=== PATIENT | female | born 2000 | race Two or more races ===

== ENCOUNTER 2021-03-19 15:22 | Emergency (ER) | payer MEDICAID, OTHER ==
[~2021-03-19] VITALS: Ht 154.9 cm; Wt 90.7 kg
[2021-03-19 17:40] VITALS: BP 134/89
== END 2021-03-19 17:52 | disposition home or self-care (01) ==
LOC: ER 15:22 → EDBD 15:22 → ER 17:52
DX: S60.212A Contusion of left wrist, initial encounter (principal); S20.212A Contusion of left front wall of thorax, initial encounter; V49.9XXA Car occupant (driver) (passenger) injured in unspecified traffic accident, initial encounter; Y93.89 Activity, other specified; Y92.410 Unspecified street and highway as the place of occurrence of the external cause; Y99.8 Other external cause status
CPT/HCPCS: 71046; 73100; 93005

== ENCOUNTER 2024-07-14 09:30 | Emergency (ER) | payer MEDICAID ==
[~2024-07-14] VITALS: Ht 157.5 cm; Wt 86.8 kg
[2024-07-14 10:24] VITALS: BP 137/93; PULSE 107; RESP 18; TEMP 98.9; O2SAT 96
--- NOTE | 2024-07-14 10:47 | ED.PDOC ---
General HPI Comments A 24 YEAR OLD FEMALE PRESENTS TO THE ED WITH COMPLAINT OF SUPRAPUBIC ABDOMINAL PAIN DURING . PATIENT REPORTS THAT SHE HAS BEEN EXPERIENCING SUPRAPUBIC CRAMPING WITH ASSOCIATED PRESSURE, BILATERAL FLANK PAIN, AND FREQUENT URINATION FOR THE PAST 2 DAYS. PATIENT RELAYS THAT SHE IS CURRENTLY 7 WEEKS AND HAS FOLLOWED UP WITH DR. SANCHEZ REGARDING HER CONCERN, BEING ADVISED TO COME TO THE ED FOR FURTHER EVALAUTION. PATIENT IS . PATIENT DENIES FEVER, CHILLS, SHORTNESS OF BREATH, CHEST PAIN, DYSURIA, HEMATURIA, VAGINAL BLEEDING, NAUSEA, VOMITING, OR OTHER COMPLAINTS. NO OTHER SYMPTOMS OR MODIFYING FACTORS AT THIS TIME. Chief Complaint: Time Seen by MD: 10:43 Primary Care Provider: NONE Reviewed notes: Nurses Notes, Medications, Allergies Allergies: Coded Allergies: NO KNOWN ALLERGIES (Unverified , 03/19/21) Information Source: Patient Mode of Arrival: Ambulatory Severity: Mild, Moderate Inability to void: None Timing: Days Duration: Since onset Prehospital treatment: None Onset: Spontaneous Symptoms: Frequency, Urgency Location: Suprapubic, (R) Flank, (L)Flank associated signs and symptoms: Flank Pain, Frequency, Urgency, Other (PELVIC CRAMPS ) Past Medical History PAST MEDICAL HISTORY: Denies Surgical History: Denies all surgeries ENVIRONMENTAL OFFICER History: No Pertinent ENVIRONMENTAL OFFICER History 1 Para 0 Family History Family History: No family hx of Cancer, No family hx of DM, No family hx of Heart roberto Social History Smoker: Non-Smoker Alcohol: Denies ETOH Use Drugs: Denies Drug Use Lives In: Home Constitutional: denies: chills, diaphoresis, fatigue, fever, malaise, sweats, w eakness, others EENTM: denies: blurred vision, double vision, ear bleeding, ear discharge, ear drainage, ear pain, ear ringing, eye pain, eye redness, hearing loss, mouth pain, mouth swelling, nasal discharge, nose bleeding, nose congestion, nose pain, photophobia, tearing, throat pain, throat swelling, voice changes, others Respiratory: denies: cough, hemoptysis, orthopnea, SOB at rest, shortness of breath, SOB with excertion, stridor, wheezing, others Cardiovascular: denies: chest pain, dizzy spells, diaphoresis, Dyspnea on exertion, edema, irregular heart beat, left arm pain, lightheadedness, palpitations, PND, syncope, others Gastrointestinal: reports: abdominal pain; denies: abdomen distended, blood streaked bowels, constipated, diarrhea, dysphagia, difficulty swallowing, hematemesis, melena, nausea, poor appetite, poor fluid intake, rectal bleeding, rectal pain, vomiting, others Genitourinary: reports: frequency, pain (SURAPUBIC ), , urgency; denies: abnormal vagina bleeding, burning, dyspareunia, dysuria, flank pain, hematuria, incontinence, vagina discharge, others Neurological: denies: dizziness, fainting, headache, left sided numbness, left sided weakness, numbness, paresthesia, pre-existing deficit, right sided numbness, right sided weakness, seizure, speech problems, tingling, tremors, weakness, others Musculoskeletal: denies: back pain, gout, joint pain, joint swelling, muscle pain, muscle stiffness, neck pain, others Integumetry: denies: bruises, change in color, change in hair/nails, dryness, laceration, lesions, lumps, rash, wounds, others Allergic/Immunocompromised: denies: Difficulty Healing, Frequent Infections, Hives, Itching, others Hematologic/Lymphatic: denies: anemia, blood clots, easy bleeding, easy bruising, swollen glands, others Endocrine: denies: excessive hunger, excessive sweating, excessive thirst, excessive urination, flushing, intolerance to cold, intolerance to heat, unexplained weight gain, unexplained weight loss, others Psychiatric: denies: anxiety, bipolar disorder, depression, hopeless, panic disorder, schizophrenia, sleepless, suicidal, others All Other Systems: Reviewed and Negative Physical Exam General Appearance: No Apparent Distress, Normal HEENT: Normal ENT Inspection, PERRL/EOMI, Pharynx Normal Neck: Full Range of Motion, Non-Tender, Normal, Normal Inspection Respiratory: Chest Non-Tender, Lungs Clear, No Accessory Muscle Use, No Respiratory Distress, Normal Breath Sounds Cardiovascular: No Edema, No JVD, No Murmur, No Gallop, Normal Peripheral Pulses, Regular Rate/Rhythm Breast Exam: Deferred Gastrointestinal: No Organomegaly, Non Tender, No Pulsatile Mass, Normal Bowel Sounds, Soft, Suprapubic (PRESSURE. ) Genitalia: Deferred Pelvic: Normal External Exam, Tender Uterus (TENDERNESS SURAPUBIC, NO GUARDING AND REBOUND TENDERNESS. ) Rectal: Deferred Extremities: No calf tenderness, Normal capillary refill, Normal inspection, Normal range of motion, Non-tender, No pedal edema Musculoskeletal : Apperance: Normal Neurologic: Alert, freelance art director II-XII nml as Tested, No Motor Deficits, Normal Affect, Normal Mood, No Sensory Deficits Cerebellar Function: Normal Reflexes: Normal Skin: Dry, Normal Color, Warm Peripheral Pulses: 2+ carotid (R), 2+ carotid (L) Lymphatic: No Adenopathy Was a procedure done? Was a procedure done?: No Differential Diagnosis Kidney stone (Female): Ectopic Urinary Problem (Female): Intrauterine , UTI, Vaginitis X-Ray, Labs, Meds, VS Vital Signs Date Time Temp Pulse Resp B/P (MAP) Pulse Ox O2 Delivery O2 Flow Rate FiO2 07/14/24 10:24 98.9 107 18 137/93 (108) 96 98.9 07/14/24 10:24 107 18 96 Room Air 07/14/24 10:02 98.8 77 16 143/65 (91) 98 Lab Test 07/14/24 10:50 07/14/24 09:59 Range/Units White Blood Count 12.3 H 4.4-10.8 10^3/uL Red Blood Count 4.64 4.0-5.20 10^6/uL Hemoglobin 13.3 12.2-16.2 g/dL Hematocrit 39.4 36.0-46.0 % Mean Corpuscular Volume 84.8 80.0-100.0 fL Mean Corpuscular Hemoglobin 28.7 28.0-32.0 pg Mean Corpuscular Hemoglobin Concent 33.9 32.0-36.0 g/dL Red Cell Distribution Width 13.8 11.8-14.3 % Platelet Count 405 140-450 10^3/uL Mean Platelet Volume 7.6 6.9-10.8 fL Neutrophils (%) (Auto) 71.3 37.0-80.0 % Lymphocytes (%) (Auto) 20.8 10.0-50.0 % Monocytes (%) (Auto) 5.4 0.0-12.0 % Eosinophils (%) (Auto) 1.5 0.0-7.0 % Basophils (%) (Auto) 1.0 0.0-2.0 % Neutrophils # (Auto) 8.8 H 1.6-8.6 10 ^3/uL Lymphocytes # (Auto) 2.6 0.4-5.4 10 ^3/uL Monocytes # (Auto) 0.7 0-1.3 10 ^3/uL Eosinophils # (Auto) 0.2 0-0.8 10 ^3/uL Basophils # (Auto) 0.1 0-0.2 10 ^3/uL Nucleated Red Blood Cells 0.0 % Beta HCG, Quantitative 86076.6 H 1.5-4.2 mIU/mL Urine Color Yellow Yellow Urine Clarity Ex.turbid Clear Urine pH 5.5 5.0-9.0 Urine Specific [place] 1.033 1.001-1.035 Urine Protein 1+ H Negative Urine Ketones Negative Negative Urine Blood 1+ H Negative /uL Urine Nitrite Negative Negative Urine Bilirubin Negative Negative Urine Urobilinogen Normal Negative mg/dL Urine Leukocyte Esterase Trace Negative /uL Urine RBC None seen 0 - 4 /hpf Urine WBC None seen 0 - 5 /hpf Urine Squamous Epithelial Cells Mod <5 /hpf Urine Amorphous Crystals Few None Seen /hpf Urine Bacteria Mod H None Seen /hpf Urine Mucus Many None Seen Urine Glucose Normal Normal mg/dL PATIENT: ALETHA CAMPACCT: [id number]: [id number] : 2000 LOC: ER ROOM / BED: / AGE / SEX: 24 / F ADM STATUS: REG ER SERVICE 1110 ORDERING PHYSICIAN: DOMINIC HAN PROCEDURE(s): OB4US - OB ULTRASOUND COMP LESS 14WKS REASON: PELVIC PAIN ORDER NUMBER(s): [id number], ACCESSION NUMBER(s): [id number] OB ULTRASOUND <14 WEEKS: HISTORY: PELVIC PAIN TECHNIQUE: Multiple real-time grayscale sonographic images of the pelvis with duplex Doppler color flow, spectral and M-mode analysis. TRANSDUCERS: Transabdominal and endovaginal FINDINGS: The uterus measures 9.8 x 6.8 x 5.9 cm. The cervix veins trace free fluid Right ovary measures 6.6 x 4.5 x 5.5 cm with normal Doppler color flow. Simple appearing right ovarian cyst measuring 4.3 x 3.7 x 4.6 cm. Left ovary measures 3.9 x 1.9 x 1.9 cm with normal Doppler color flow IUP single live fetus at 7 weeks 0 days average ultrasound age based on mean crown-rump length of 0.7 cm and gestational sac size of 2.5 cm heart rate detected at 139 beats per minute. Yolk sac is present. Amniotic fluid subjectively within normal limits Birdie-gestational space: Unremarkable Trace free fluid in the posterior cul-de-sac. IMPRESSION: 1. IUP single live fetus 7 weeks 0 days AUA corresponding to an JEREMÍAS of 03/02/2025. 2. Trace free fluid in the cervix. 3. Trace free fluid in the posterior cul-de-sac. 4. Simple appearing right ovarian cyst measuring 4.6 cm. HS:Y ATED BY: MILAGRO COCHRAN DO DICTATED DATE/TIME: 07/14/24 1150 SIGNED BY: MILAGRO COCHRAN DO SIGNED DATE/TIME: 07/14/24 1150 CC: Time of 1ST Reevaluation: 12:00 Reevaluation 1ST: Improved Patient Education/Counseling: Diagnosis, Treatment, Need For Follow Up Family Education/Counseling: Diagnosis, Treatment, Need For Follow Up, No Family Present Medical Screening: No EMC Exist At This Time Departure 1 Departure Time of Disposition: 12:10 Impression: Primary Impression: Normal first in first trimester Additional Impression: Cyst of right ovary Disposition: 01 HOME / SELF CARE / HOMELESS Condition: Stable Additional Instructions: FOLLOW-UP WITH BREAKFAST BAR ATTENDANT IN 2 DAYS. TAKE MEDICATIONS PRESCRIBED. RETURN TO ED FOR ANY NEW OR WORSENING SYMPTOMS. Discharged With: Self Critical Care Note Critical Care Time?: No Stability Stability form required: No Heart Score Heart Score: Heart Score Response (Comments) Value History N/A 0 EKG N/A 0 Age N/A 0 Risk Factors N/A 0 Troponin N/A 0 Total 0 I personally scribed for DOMINIC HAN ([email or web address]) on 07/14/24 at 10:47. Electronically submitted by Nick Guevara ([email or web address]). DOMINIC HAN Jul 14, 2024 10:47
[2024-07-14 11:17] LABS: Basophils # (auto) 0.1 10 ^3/uL (0-0.2); Eosinophils # (auto) 0.2 10 ^3/uL (0-0.8); Eosinophils % (auto) 1.5 % (0.0-7.0); Hematocrit 39.4 % (36.0-46.0); Hemoglobin 13.3 g/dL (12.2-16.2); Lymphocytes # (auto) 2.6 10 ^3/uL (0.4-5.4); Lymphocytes % (auto) 20.8 % (10.0-50.0); Mean Corpuscular Hemoglobin 28.7 pg (28.0-32.0); Mean Corpuscular Hgb Conc. 33.9 g/dL (32.0-36.0); Mean Corpuscular Volume 84.8 fL (80.0-100.0); Monocytes # (auto) 0.7 10 ^3/uL (0-1.3); Monocytes % (auto) 5.4 % (0.0-12.0); Neutrophils # (auto) 8.8 10 ^3/uL (1.6-8.6); Neutrophils % (auto) 71.3 % (37.0-80.0); Platelet Count (auto) 405 10^3/uL (140-450); Red Blood Cells 4.64 10^6/uL (4.0-5.20); Red Cell Distribution Width 13.8 % (11.8-14.3); White Blood Cell 12.3 10^3/uL (4.4-10.8)
[2024-07-14 11:29] LABS: Urine WBC None Seen /hpf (0 - 5)
--- NOTE | 2024-07-14 11:53 | DVH ---
OB ULTRASOUND <14 WEEKS: HISTORY: PELVIC PAIN TECHNIQUE: Multiple real-time grayscale sonographic images of the pelvis with duplex Doppler color f low, spectral and M-mode analysis. TRANSDUCERS: Transabdominal and endovaginal FINDINGS: The uterus measures 9.8 x 6.8 x 5.9 cm. The cervix veins trace free fluid Right ovary measures 6.6 x 4.5 x 5.5 cm with normal Doppler color flow. Simple appearing right ovaria n cyst measuring 4.3 x 3.7 x 4.6 cm. Left ovary measures 3.9 x 1.9 x 1.9 cm with normal Doppler color flow IUP single live fetus at 7 weeks 0 days average ultrasound age based on mean crown-rump length of 0.7 cm and gestational sac size of 2.5 cm heart rate detected at 139 beats per minute. Yolk sac is present. Amniotic fluid subjectively within normal limits Birdie-gestational space: Unremarkable Trace free fluid in the posterior cul-de-sac. IMPRESSION: 1. IUP single live fetus 7 weeks 0 days AUA corresponding to an JEREMÍAS of 03/02/2025. 2. Trace free fluid in the cervix. 3. Trace free fluid in the posterior cul-de-sac. 4. Simple appearing right ovarian cyst measuring 4.6 cm. HS:Y
[2024-07-14 12:26] LABS: Urine Amorphous Crystal FEW /hpf (None Seen); Urine Bacteria MOD /hpf (None Seen); Urine Blood 1+ /uL (Negative); Urine Clarity Ex.Turbid (Clear); Urine Mucus MANY (None Seen); Urine Protein, UAD 1+ (Negative); Urine Specific Gravity 1.033 (1.001-1.035); Urine Urobilinogen Normal (Negative); Urine pH 5.5 (5.0-9.0)
[2024-07-14 12:27] LABS: Urine Color Yellow (Yellow)
== END 2024-07-14 12:09 | disposition home or self-care (01) ==
LOC: ER 09:30
DX: O34.81 Maternal care for other abnormalities of pelvic organs, first trimester (principal); R10.2 Pelvic and perineal pain; N83.201 Unspecified ovarian cyst, right side; Z3A.01 Less than 8 weeks gestation of pregnancy
CPT/HCPCS: 36415; 76801; 76817; 81001; 84702; 85025

== ENCOUNTER 2024-12-31 21:18 | Observation (INO) | payer MEDICAID ==
[2024-12-31] MEDS ORDERED: LACTATED RINGER'S 1,000 ML IV ONE (22:00)
--- NOTE | 2024-12-31 22:58 | DVH ---
INDICATION: FALL AND CONTRACTIONS TECHNIQUE: Multiple real-time grayscale transabdominal and transvaginal sonographic images along with limited color and duplex Doppler of the uterus were obtained. COMPARISON: None FINDINGS: The placenta is fundal without evidence of previa or abruption. The cervix is closed, measuring 2.9 c m. heart rate is 155 beats per minute and current ROSANA is 14.6 cm. IMPRESSION: 1. Unremarkable limited evaluation without evidence of placenta previa or abruption. Cervix is long and closed.
--- NOTE | 2025-01-01 07:53 | DVHDS2 ---
Discharge Summary Date of Admission December 31, 2024 at 21:18 Date of Discharge: December 31, 2024 Admitting Diagnosis Thirty-one week intrauterine had a fall to her bottom no abdominal trauma patient is here for reassurance Brief Hx & Hospital Course: Patient had a fall to her bottom no abdominal trauma here for reassurance Condition at Discharge: Good Final Diagnosis/Problems List Reassuring heart tones Discharge Disposition: Home Discharge Instruct/Medications Diet: Regular Activity: No Restrictions, As Tolerated Discharge Statement: "Patient was advised to return to the ER or call 911 if any headaches, di zziness, shortness of breath, chest pain, abdominal pain, bleeding, fevers, or worsening of medical condition. Patient was counseled about treatment plan, medications, possible side effects, patientverbalized understanding. All questions were answered to the best of my ability. This discharge took greater then 30 minutes in planning, reviewing documentation, counseling the patient, and discussing with other team members." ASSESSMENT ASSESSMENT Assessment Visit Coding OBGYN Date of Service: January 01, 2025 Billing Provider: MELY KERR DO INFORMATICA DEVELOPER Common Visit Codes: 70560-UMI/OBS SAME DATE (LOW), 61699-CLC/OBS SAME DATE (MOD), 35503-HDQ/OBS SAME DATE (HIGH) INFORMATICA DEVELOPER Procedure Codes: 60663-35- NON-STRESS TEST MELY KERR DO January 01, 2025 07:53
[2025-01-01] MEDS ORDERED: CEPH500C PO (15:37)
== END 2024-12-31 23:41 | disposition home or self-care (01) ==
LOC: LDRP 21:18
PROVIDERS: ADMIT Obstetrics & Gynecology; ATTEND Obstetrics & Gynecology
DX: O62.9 Abnormality of forces of labor, unspecified (principal); Z98.890 Other specified postprocedural states; Z79.899 Other long term (current) drug therapy; Z3A.31 31 weeks gestation of pregnancy; W18.39XA Other fall on same level, initial encounter; Y93.89 Activity, other specified; Y92.89 Other specified places as the place of occurrence of the external cause; Y99.8 Other external cause status
CPT/HCPCS: 59025; 76815; 76817; 81002; 94760; 96360; 96361; G0378

== ENCOUNTER 2025-01-01 12:51 | Emergency (ER) | payer MEDICAID ==
[~2025-01-01] VITALS: Ht 157.5 cm; Wt 85.0 kg
--- NOTE | 2025-01-01 14:04 | ED.PDOC ---
Foreign Body HPI Comments 24-year-old presents for a possible splinter to the left hand. Onset occurred yesterday. Has not tried removing them at home. Neurovascularly intact. No other complaint or concern Chief Complaint: Foreign Body Time Seen by MD: 13:53 Primary Care Provider: UNKNOWN History of Present Illness: Nurses Notes, Medications, Allergies Allergies: Coded Allergies: NO KNOWN ALLERGIES (Unverified , 03/19/21) Home Meds Active Scripts Cephalexin Monohydrate (Cephalexin) 500 Mg Cap, 1 CAP PO QID for 5 Days, #20 CAP 0 Refills Prov:MENA REDMAN Samm WELL LOGGING CAPTAIN MUD ANALYSIS 01/01/25 Information Source: Patient Mode of Arrival: Ambulatory Past Medical History PAST MEDICAL HISTORY: Denies Surgical History: Denies all surgeries TELEMEDICINE PHYSICIAN History: No Pertinent TELEMEDICINE PHYSICIAN History Family History Family History: No family hx of Cancer, No family hx of DM, No family hx of Heart roberto Social History Smoker: Non-Smoker Alcohol: Denies ETOH Use Drugs: Denies Drug Use Lives In: Home All Other Systems: Reviewed and Negative (Per HPI) Physical Exam General Appearance: No Apparent Distress, Normal HEENT: Normal ENT Inspection, Pharynx Normal, TMs Normal Neck: Full Range of Motion, Non-Tender, Normal, Normal Inspection Respiratory: Chest Non-Tender, Lungs Clear, No Accessory Muscle Use, No Respiratory Distress, Normal Breath Sounds Cardiovascular: No Edema, No JVD, No Murmur, No Gallop, Normal Peripheral Pulses, Regular Rate/Rhythm Breast Exam: Deferred Gastrointestinal: No Organomegaly, Non Tender, No Pulsatile Mass, Normal Bowel Sounds, Soft Genitalia: Deferred Pelvic: Deferred Rectal: Deferred Extremities: No calf tenderness, Normal capillary refill, Normal inspection, Normal range of motion, Non-tender, No pedal edema Musculoskeletal : Location: Right Extremity Location: Hand (visible splinters. TTP) Apperance: Normal Neurologic: Alert, humanities division chair II-XII nml as Tested, No Motor Deficits, Normal Affect, Normal Mood, No Sensory Deficits Cerebellar Function: Normal Reflexes: Normal Skin: Dry, Normal Color, Warm Lymphatic: No Adenopathy Was a procedure done? Was a procedure done?: Yes Sedation Sedation?: No Other Procedure Procedure splinter removal Prep yes Success yes Informed consent obtained: Yes Risks, benefits, and alternati: Yes FB Differential Dx Differential Diagnosis: Foreign Body X-Ray, Labs, Meds, VS Vital Signs Date Time Temp Pulse Resp B/P (MAP) Pulse Ox O2 Delivery O2 Flow Rate FiO2 01/01/25 15:45 98.9 89 20 120/78 (92) 96 98.9 01/01/25 15:45 89 20 96 Room Air 01/01/25 13:00 99.4 96 18 117/75 (89) 96 99.4 X-Ray, Labs, Meds, VS Comment Patient is stable for discharge at this time. External notes reviewed. Test results and diagnostic imaging interpreted. All diagnostic findings, discharge care, education and instructions provided Follow-up with PCP in 2 to 3 days Patient verbalized understanding and agreed to treatment plan Vital signs stable, afebrile, no acute distress noted Patient ambulatory with strong steady gait Advised to return precautions for any new or worsening symptoms, return to ER immediately for re-evaluation Patient is aware that the purpose of this visit was for an acute medical emergency requiring emergent stabilization. Chronic conditions, including malignancies have not been ruled out. Patient is instructed to follow up with PCP as directed and discharge instructions for continued care and workup. If unable to arrange follow-up, patient is to return to the emergency department for reassessment. Patient (parent or legal guardian if applicable) was given verbal and written discharge instructions and acknowledges understanding. Time of 1ST Reevaluation: 14:04 Reevaluation 1ST: Improved Patient Education/Counseling: Diagnosis, Treatment Family Education/Counseling: Diagnosis, Treatment Departure 1 Departure Time of Disposition: 15:37 Impression: Primary Impression: Splinter of hand Qualified Codes: S60.552A - Superficial foreign body of left hand, initial encounter Disposition: HOME / SELF CARE / HOMELESS Condition: Stable e-Prescriptions Cephalexin Monohydrate (Cephalexin) 500 Mg Cap 1 CAP PO QID for 5 Days, #20 CAP 0 Refills Prov: EMNA REDMAN WELL LOGGING CAPTAIN MUD ANALYSIS 01/01/25 Discharged With: Self Critical Care Note Critical Care Time?: No Stability Stability form required: No Heart Score Heart Score: Heart Score Response (Comments) Value History N/A 0 EKG N/A 0 Age N/A 0 Risk Factors N/A 0 Troponin N/A 0 Total 0 MENA REDMAN WELL LOGGING CAPTAIN MUD ANALYSIS January 01, 2025 14:04
[2025-01-01] MEDS ORDERED: CEPH500C PO (15:37)
[2025-01-01 15:45] VITALS: BP 120/78; PULSE 89; RESP 20; TEMP 98.9; O2SAT 96
== END 2025-01-01 16:03 | disposition home or self-care (01) ==
LOC: ER 12:51
DX: S60.552A Superficial foreign body of left hand, initial encounter (principal); Z79.899 Other long term (current) drug therapy; W45.8XXA Other foreign body or object entering through skin, initial encounter; Y93.89 Activity, other specified; Y92.89 Other specified places as the place of occurrence of the external cause; Y99.8 Other external cause status

== ENCOUNTER 2025-01-08 07:33 | Observation (INO) | payer MEDICAID ==
[~2025-01-08 07:33] MED LIST: CEPH500C PO
[2025-01-17] MEDS ORDERED: PREN-129 OR (10:40)
--- NOTE | 2025-01-17 11:01 | DVH ---
BIOPHYSICAL PROFILE HISTORY: short cervix TECHNIQUE: Multiple transabdominal real-time grayscale sonographic images through the gravid uterus o f the fetus with duplex doppler color flow and M-mode spectral analysis FINDINGS: BIOPHYSICAL PROFILE: breathing score: 2 movement score: 2 tone score: 2 Quantitative ROSANA score: 2 (ROSANA: 13.4 cm.) Total score: 8/8 The cervix closed and measures 3.2 cm. Single live fetus in cephalic presentation. heart rate 134 beats per minute. Fundal placenta without previa or abruption Biophysical profile score 8/8 corresponding to an JEREMÍAS of 03/02/25 IMPRESSION: Biophysical profile score: 8/8 The cervix closed and measures 3.2 cm.
--- NOTE | 2025-01-17 23:04 | DVHDS2 ---
Physician Discharge Progress N Final Diagnosis: testing for short cervix Operations or Procedures: Operations or Procedures 24yo IUP@33.5wks, +FM, denies UCs/LOF/VB VSS NST reactive FKC/PTL precautions reviewed Dr. Harmon consulted, agrees with POC. Other Interventions Other Interventions [address] [address] Ph: [phone] DIAGNOSTIC IMAGING Diagnostic Imaging Report : [id number] Signed PATIENT: ALETHA CAMPACCT: [id number] UNIT: [id number] : 2000 LOC: [facility] ROOM / BED: TRIAGE1 / A AGE / SEX: 24 / F ADM STATUS: ADM IN SERVICE 7 ORDERING PHYSICIAN: DEANDRA CHILDS CNM PROCEDURE(s): BPP - BIOPHYSICAL PROFILE REASON: short cervix ORDER NUMBER(s): [id number], ACCESSION NUMBER(s): [id number] BIOPHYSICAL PROFILE HISTORY: short cervix TECHNIQUE: Multiple transabdominal real-time grayscale sonographic images through the gravid uterus of the fetus with duplex doppler color flow and M-mode spectral analysis FINDINGS: BIOPHYSICAL PROFILE: breathing score: 2 movement score: 2 tone score: 2 Quantitative ROSANA score: 2 (ROSANA: 13.4 cm.) Total score: 8/8 The cervix closed and measures 3.2 cm. Single live fetus in cephalic presentation. heart rate 134 beats per minute. Fundal placenta without previa or abruption Biophysical profile score 8/8 corresponding to an JEREMÍAS of 03/02/25 IMPRESSION: Biophysical profile score: 8/8 The cervix closed and measures 3.2 cm. ATED BY: EDGARDO CHILEL MD DICTATED DATE/TIME: 01/17/251057 SIGNED BY: EDGARDO CHILEL MD SIGNED DATE/TIME: 01/17/251057 CC: Condition on Discharge: Stable Disposition: Home Discharge Instructions: Diet: Regular Activity: See Comment Activity comment: pelvic rest Medications: see med list Follow Up Care: Specialist: f/u in 1 wk Discharge Statement: "Patient was advised to return to the ER or call 911 if any headaches, dizziness, shortness of breath, chest pain, abdominal pain, bleeding, fevers, or worsening of medical condition. Patient was counseled about treatment plan, medications, possible side effects, patientverbalized understanding. All questions were answered to the best of my ability. This discharge took greater then 30 minutes in planning, reviewing documentation, counseling the patient, and discussing with other team members." Visit Coding OBGYN Date of Service: January 17, 2025 Billing Provider: DEANDRA CHILDS CNM PLAY WRITER Common Visit Codes: 45429-MIGKCAJ OBS CARE (HIGH) PLAY WRITER Procedure Codes: 48331-09- NON-STRESS TEST DEANDRA CHILDS CNM January 17, 2025 23:04
== END 2025-01-17 10:51 | disposition home or self-care (01) ==
LOC: LDRP 01-17 09:28 → UNDOADMOB 01-17 09:28 → LDRP 01-17 09:39
PROVIDERS: ADMIT Obstetrics & Gynecology; ATTEND Obstetrics & Gynecology
DX: O26.873 Cervical shortening, third trimester (principal); Z3A.33 33 weeks gestation of pregnancy; Z79.899 Other long term (current) drug therapy; Z98.890 Other specified postprocedural states
CPT/HCPCS: 59025; 76819; 81002; 94760; G0378

== ENCOUNTER 2025-01-24 06:38 | Inpatient (IN) | payer MEDICAID ==
[~2025-01-24] VITALS: Ht 157.5 cm; Wt 90.7 kg
[~2025-01-24 06:38] MED LIST changes: +PREN-129 OR
[2025-02-19] MEDS ORDERED: NALBUPHINE HCL 10 MG/1ml INJECTION IV PRN (11:15)
[2025-02-19] MEDS: LACT. RINGERS/OXYTOCIN 20UNITS 1,000 ML IV SCH (11:15)
[2025-02-19] MEDS ORDERED: TERBUTALINE SULFATE 1 MG/ML 1ML VIAL SC PRN (11:15)
[2025-02-19] MEDS: ePHEDrine SULFATE 50 MG/ML AMP IV ONE (11:45)
[2025-02-19] MEDS: NALOXONE HCL 0.4 MG/ML VIAL IV ONE (11:45)
[2025-02-19 12:03] LABS: Basophils # (auto) 0.1 10 ^3/uL (0-0.2); Monocytes # (auto) 0.7 10 ^3/uL (0-1.3); Neutrophils # (auto) 7.6 10 ^3/uL (1.6-8.6); White Blood Cell 10.1 10^3/uL (4.4-10.8)
[2025-02-19 12:04] LABS: Basophils % (auto) 0.7 % (0.0-2.0); Eosinophils # (auto) 0 10 ^3/uL (0-0.8); Eosinophils % (auto) 0.4 % (0.0-7.0); Hematocrit 37.9 % (36.0-46.0); Hemoglobin 12.8 g/dL (12.2-16.2); Lymphocytes # (auto) 1.7 10 ^3/uL (0.4-5.4); Lymphocytes % (auto) 16.6 % (10.0-50.0); Mean Corpuscular Hemoglobin 26.3 pg (28.0-32.0); Mean Corpuscular Hgb Conc. 33.7 g/dL (32.0-36.0); Mean Corpuscular Volume 78.2 fL (80.0-100.0); Monocytes % (auto) 7.2 % (0.0-12.0); Neutrophils % (auto) 75.1 % (37.0-80.0); Platelet Count (auto) 356 10^3/uL (140-450); Red Blood Cells 4.85 10^6/uL (4.0-5.20); Red Cell Distribution Width 16.1 % (11.8-14.3)
[2025-02-19] MEDS: PHISODERM TOP SOLN 240ML BTL TOP PRN (12:08)
[2025-02-19] MEDS: DERMOPLAST 60ML BOTTLE TOP PRN (12:08)
[2025-02-19] MEDS: WITCH HAZEL-GLYCERIN PAD TOP PRN (12:08)
[2025-02-19 12:09] LABS: Alanine Aminotransferase 14 U/L (7-40); Albumin 3.6 g/dL (3.2-4.8); Alkaline Phosphatase 228 U/L (46-116); Anion Gap 12 (5-15); Aspartate Aminotransferase 14 U/L (<34); BUN/Creatinine Ratio 10.6 (10.0-20.0); Blood Urea Nitrogen 5 mg/dL (9-23); Calcium 9.3 mg/dL (8.7-10.4); Carbon Dioxide 18 mmol/L (20-31); Chloride 108 mmol/L (98-107); Glucose 72 mg/dL (74-106); INR 0.89 (0.9-1.15); Partial Thromboplastin Time 25.4 SEC (24.5-34.5); Potassium 4.1 mmol/L (3.5-5.1); Prothrombin Time 9.5 sec (9.3-11.8); Sodium 138 mmol/L (136-145); Total Protein 6.1 g/dL (5.7-8.2)
[2025-02-19] MEDS: LACTATED RINGER'S 1,000 ML IV SCH ×2 (12:09→20:30)
[2025-02-19 12:10] LABS: Bilirubin, Total 0.4 mg/dL (0.2-1.0)
--- NOTE | 2025-02-19 13:35 | DVHHP2 ---
SADA JULES STUDENTMDW 02/19/25 1334: OB CC & HPI Date Date of Admission: Feb 19, 2025 Patient Identification: : 1 Para: 0 EDC: Mar 02, 2025 EGA: 03/02/2025 Chief Complaints: Reason for admission: active labor Admission Nurse Assessment Rev: Yes History of Present Complaints 25yo IUP@ 38.3 wks presents in labor. Pt reports UCs Q3 min that started this morning at 0830. Wants an epidural. Denies LOF/VB/[place]/vision changes/RUQ pain. Endorses +FM. PNC: Routine PNC at [facility] OB with Dr Harmon, adequate visits, PNC uncomplicated. GTT wnl, dating based on LMP c/w 6wk sono, GBS negative. Past Medical History Cardiac: No pertinent Hx Pulmonary: No pertinent Hx Central Nervous System: No pertinent Hx GI: No pertinent Hx Hemotology/Oncology: No pertinent Hx Hepatobiliary: No pertinent Hx Psychiatric: No pertinent Hx Musculoskeletal: No pertinent Hx Rheumotologic: No pertinent Hx Infectious Disease: No peritnent Hx ENT: No pertinent Hx Renal/: No pertinent Hx Endocrine: No pertinent Hx Dermatology: No pertinent Hx Past Surgical History: No pertinent Hx OB History OB History Care: Good Care Ultrasounds: Normal mid trimester US Obstetrical Complications: None Medical Complications: None Allergies: Coded Allergies: NO KNOWN ALLERGIES (Unverified , 03/19/21) Home Meds Active Scripts Cephalexin Monohydrate (Cephalexin) 500 Mg Cap, 1 CAP PO QID for 5 Days, #20 CAP 0 Refills Prov:MENA REDMAN CERTIFIED MIDWIFE 01/01/25 Reported Medications Vit W/ Ferrous Fumara () Tab, 1 OR DAILY, TAB 01/17/25 Home Meds PNV Current Medications Current Medications Medications (Trade) Dose Ordered Sig/[place] Route PRN Reason Start Time Stop Time Status Last Admin Lactated Ringer's 1,000 ml @ 125 mls/hr Q8H IV 02/19/25 11:15 02/19/25 12:42 Nalbuphine HCl (Nubain) 10 mg Q4HP PRN IV MODERATE PAIN (4-6 PAIN SCALE) 02/19/25 11:15 Witch Argenis (Tucks) 1 pad PRN PRN TOP PERINEAL AREA DISCOMFORT 02/19/25 11:15 02/19/25 12:08 Sodium Lauryl Sulfate (Phisoderm) 240 ml PRN PRN TOP PERINEAL AREA DISCOMFORT 02/19/25 11:15 02/19/25 12:08 Benzocaine (Dermoplast) 1 applic PRN PRN TOP PERINEAL AREA DISCOMFORT 02/19/25 11:15 02/19/25 12:08 Lidocaine HCl (Xylocaine) 20 ml ONCE PRN IJ PERINEAL AREA DISCOMFORT 02/19/25 11:15 Oxytocin 1,000 ml @ 6 ml/hr Q24H IV 02/19/25 11:15 Terbutaline Sulfate (Brethine Inj) 0.25 mg ONCE PRN SC Uterine tachysystole 02/19/25 11:15 Lactated Ringer's 1,000 ml @ 125 mls/hr Q8H IV 02/19/25 12:30 UNV Family & Social History Family/Social History Past Family/Social History: Maternal grandfather- pancreatic cancer; Paternal grandfather- HTN Blood Type: O+ Rubella: immune RPR/VDRL: Negative GBS Status: Negative HBsAG: Negative Review of Systems Constitutional: No symptom reported Ears, Nose, & Throat: No symptom reported Eyes: No symptom reported Pulmonary/Respiratory: No symptom reported Cardiovascular: No symptom reported Gastrointestinal: No symptom reported Genitourinary: No symptom reported Musculoskeletal: No symptom reported Skin: No symptom reported Psychiatric: No symptom reported Endocrine: No symptom reported Hemotologic/Lymphatic: No symptom reported OB Admission Exam Physical Exam Vitals: VSS, see chart HEENT: TMs Normal, Fontanelles Normal, Nasal Mucosa Normal, Eyes non-injected, Oropharynx Normal, PERRLA, Moist Membranes, EOMI Heart: Rhythm Normal Lungs: Clear Abdomen: Non tender Extremities: Normal Reflexes: Normal Pelvic Exam: Done by RN Cervical Dilatation: 4cm Effacement: 75% Station: -2 Membranes: Intact Heart Rate: 150's (poor/sketchy tracing) Nursing Home Variability: Average (6-25) Contractions on Admission: < 5 Minutes Apart (Q 2-4 min) Date/Time Contractions Began: 08:30 this morning Intensity: Moderate OB Plan Plan Admitting Diagnosis: 25yo IUP@ 38.3wks Labor Category I EFM Intact Membranes GBS negative Plan: Expectant Management Other Plan: Admit to &D Informed consent obtained Expectant management for now due to frequent UCs Discussed potential of starting pitocin with pt. Pt agrees with POC. monitoring per order Routine labs ordered Pain mgmt PRN Frequent position changes in and out of bed encouraged Limit SVE unless necessary Intrauterine resuscitation PRN Anticipate CNM will consult with Visit Coding OBGYN Date of Service: Feb 19, 2025 Billing Provider: MELY KERR DO STICK WELDER Common Visit Codes: [id number] INP/OBS CARE (MOD) STICK WELDER Procedure Codes: 22932-50- NON-STRESS TEST MELY KERR DO 02/20/25 1112: Allergies: Coded Allergies: NO KNOWN ALLERGIES (Unverified , 03/19/21) Home Meds Active Scripts Cephalexin Monohydrate (Cephalexin) 500 Mg Cap, 1 CAP PO QID for 5 Days, #20 CAP 0 Refills Prov:MENA REDMAN CERTIFIED MIDWIFE 01/01/25 Reported Medications Vit W/ Ferrous Fumara () Tab, 1 OR DAILY, TAB 01/17/25 SADA JULES STUDENTMDW Feb 19, 2025 13:34 MELY KERR DO Feb 20, 2025 11:12
[2025-02-19] MEDS: fentaNYL CITRATE 100 MCG/2 ML VL IV ONE (14:54)
[2025-02-19] MEDS: ROPIVACAINE HCL 100 ML ONE (14:59)
[2025-02-19 16:37] LABS: Urine Bacteria FEW /hpf (None Seen); Urine Blood 1+ /uL (Negative); Urine Clarity Turbid (Clear); Urine Color Yellow (Yellow); Urine Mucus FEW (None Seen); Urine Protein, UAD 1+ (Negative); Urine Specific Gravity 1.021 (1.001-1.035); Urine Squamous Epithelial Cell FEW /hpf (<5); Urine Urobilinogen Normal (Negative); Urine WBC 5 /HPF (0-5)
[2025-02-19 16:51] LABS: Barbiturate Scree,Urine Neg (NEGATIVE)
[2025-02-19 16:53] LABS: Amphetamine Screen, Urine Neg (NEGATIVE); Benzodiazephine Screen, Urine Neg (NEGATIVE); Cannabinoid Screen, Urine Neg (NEGATIVE); Cocaine Screen, Urine Neg (NEGATIVE); Opiate Scree,Urine Neg (NEGATIVE); Phencyclidine Screen, Urine Neg (NEGATIVE)
--- NOTE | 2025-02-19 17:18 | EPIDURAL ---
Anesthesia Procedural Note - Epidural Informed consent obtained?: Yes Medication Administered: Fentanyl 100 mcg Sterile prept drape: Yes Spinal level of insertion: L4-L5 Test dose of lidocaine & Epine: Negative Infusion started: Yes Start time: 14:30 End time: 14:55 Procedure description Procedure description: Called for labor analgesia. Patient is here at term in labor, requesting epidural. History taken, patient examined and chart reviewed. Informed consent obtained for CSE. Sitting position, sterile prep and drape. Time out done. L4-5 space infiltrated with 1% lido. Epidural needle placed with JUDITH at 6cm. 25G spinal needle +clear CSE. 15mcg fentanyl given IT. Epidural catheter secured at 12cm. Aspiration and test dose (33cc 1.5% lido with epi) negative. 85mcg fentanyl given via epidural. Patient reports pain relief. 0.2% ropivacaine infusion started. Patient VSS throughout. Will follow as needed. MAURICIO MUÑIZ MD Feb 19, 2025 17:17
[2025-02-19] MEDS: LACT. RINGERS/OXYTOCIN 20UNITS 500 ML IV ONE ×2 (19:23→19:48)
[2025-02-19] MEDS: LIDOCAINE 2%HCL (LOCAL ANESTH.) INJ 20ML MDV IJ PRN (19:40)
--- NOTE | 2025-02-19 20:03 | LDN2 ---
SADA JULES STUDENTMDW 02/19/25 2003: Labor and Delivery Note Date 02/19/25 Age 25 1 Para now, 1 AB 0 EDC 03/02/25 EGA 38.3 wks Diagnosis Vaginal Delivery: VTX Vacuum Assisted: No Placenta: Spontaneous Sex: Female Weight pending Apgars 8/9 Nuchal Cord Transected: No Amniotic Fluid: Meconium Stained, Thin Anesthesia epidural Episiotomy: No Extension: No Repaired with 2.0 Chromic EBL 100 Labs Blood Bank 02/19/25 11:30: Blood Type O POSITIVE Conditions stable Card Scraper Adrian Comments/Significant Med Anne At 1911 this 25yo now delivered a viable Female by w/ APGARS 8/9. OA presentation. Infant placed skin to skin on pts chest. RT at bedside before delivery. Cord clamped and cut after 2 min. Cord gasses collected, venous 7.35 and arterial 7.24. Cord blood sent. Pitocin IV bolus started. Intact 3-vessel cord placenta delivered spontaneously, Errol. Placenta sent to pathology. Patient had epidural and local anesthesia. Cervix/vagina inspected (intact) and second degree midline vaginal laceration present which was repaired with 2-0 chromic suture. Fundus at U, firm, midline, and light lochia. QBL 100ml. VSS. Count correct x2. Patient to care and baby to couplet care, both stable. Rectal mucosa and sphincter intact. Rectal exam performed, WNL, not involved. Visit Coding OBGYN Date of Service: Feb 19, 2025 Billing Provider: MELY KERR DO MARKETING CONSULTANT Common Visit Codes: PROCEDURE ONLY MARKETING CONSULTANT Procedure Codes: 59410-FMF DEL INCLUDING MELY KERR DO 02/20/25 1113: SADA JULES STUDENTMDW Feb 19, 2025 20:03 MELY KERR DO Feb 20, 2025 11:13
[2025-02-19] MEDS ORDERED: ONDANSETRON HCL 4 MG/2 ML VIAL IV PRN (22:45)
[2025-02-19] MEDS: ACETAMINOPHEN 325 MG TAB PO PRN (23:45)
[2025-02-20 03:10] VITALS: BP 118/61; PULSE 82; RESP 16; TEMP 99; O2SAT 99
[2025-02-20] MEDS: IBUPROFEN 600 MG TAB PO PRN (04:11)
[2025-02-20 07:00] VITALS: BP 126/63; PULSE 85; RESP 17; TEMP 98.6; O2SAT 96
[2025-02-20 11:13] VITALS: BP 130/79; PULSE 78; RESP 16; TEMP 97.9; O2SAT 96
[2025-02-20 15:00] VITALS: BP 126/63; PULSE 96; RESP 16; TEMP 98.1; O2SAT 98
[2025-02-20 19:10] VITALS: BP 131/58; PULSE 86; RESP 16; TEMP 98.4; O2SAT 99
[2025-02-20] MEDS ORDERED: DOCUSATE SOD 100 MG CAP PO SCH (22:00)
--- NOTE | 2025-02-21 06:01 | DVHPN2 ---
Chief Complaints Patient reports: No new complaints (02/20/2025 0800), Feels better, Feels worse Nursing reports: No new complaints, No abdominal pain, No chest pain, No cough Objective Vitals Vital Signs Date Time Temp Pulse Resp B/P (MAP) Pulse Ox O2 Delivery O2 Flow Rate FiO2 02/20/25 19:10 98.4 86 16 131/58 (82) 99 98.4 02/20/25 19:10 Room Air General: Normal Head/Eyes: Normal Neck: Normal Abdominal: Normal Musculoskeletal: Normal Extremities: Normal Skin: Normal Neurological: Normal Studies Laboratory Tests 02/19/25 11:30 Test 02/19/25 11:30 Range/Units Serum Glucose 72 L 74-106 mg/dL Ass/Plan Assessment PPD #1 stable improved Plan advance care MELY KERR DO Feb 21, 2025 06:01
--- NOTE | 2025-02-21 06:03 | DVHDS2 ---
Discharge Summary Date of Admission Feb 19, 2025 at 11:00 Date of Discharge: Feb 20, 2025 Admitting Diagnosis labor Labs/Diagnostic Data: Laboratory Results Test 02/19/25 15:48 02/19/25 11:30 Urine Color Yellow (Yellow) Urine Clarity Turbid (Clear) Urine pH 6.0 (5.0-9.0) Urine Specific [place] 1.021 (1.001-1.035) Urine Protein 1+ (Negative) Urine Ketones 1+ (Negative) Urine Blood 1+ /uL (Negative) Urine Nitrite Negative (Negative) Urine Bilirubin Negative (Negative) Urine Urobilinogen Normal mg/dL (Negative) Urine Leukocyte Esterase Negative /uL (Negative) Urine RBC 53 /hpf (0 - 4) Urine Microscopic WBC 5 /HPF (0-5) Urine Squamous Epithelial Cells Few /hpf (<5) Urine Bacteria Few /hpf (None Seen) Urine Mucus Few (None Seen) Urine Glucose Normal mg/dL (Normal) Urine Opiates Screen Neg (NEGATIVE) Urine Fentanyl Screen Neg (NEGATIVE) Urine Barbiturates Screen Neg (NEGATIVE) Urine Phencyclidine Screen Neg (NEGATIVE) Urine Amphetamines Screen Neg (NEGATIVE) Urine Benzodiazepines Screen Neg (NEGATIVE) Urine Cocaine Screen Neg (NEGATIVE) Urine Cannabinoids Screen Neg (NEGATIVE) White Blood Count 10.1 10^3/uL (4.4-10.8) Red Blood Count 4.85 10^6/uL (4.0-5.20) Hemoglobin 12.8 g/dL (12.2-16.2) Hematocrit 37.9 % (36.0-46.0) Mean Corpuscular Volume 78.2 fL (80.0-100.0) Mean Corpuscular Hemoglobin 26.3 pg (28.0-32.0) Mean Corpuscular Hemoglobin Concent 33.7 g/dL (32.0-36.0) Red Cell Distribution Width 16.1 % (11.8-14.3) Platelet Count 356 10^3/uL (140-450) Mean Platelet Volume 8.8 fL (6.9-10.8) Neutrophils (%) (Auto) 75.1 % (37.0-80.0) Lymphocytes (%) (Auto) 16.6 % (10.0-50.0) Monocytes (%) (Auto) 7.2 % (0.0-12.0) Eosinophils (%) (Auto) 0.4 % (0.0-7.0) Basophils (%) (Auto) 0.7 % (0.0-2.0) Neutrophils # (Auto) 7.6 10 ^3/uL (1.6-8.6) Lymphocytes # (Auto) 1.7 10 ^3/uL (0.4-5.4) Monocytes # (Auto) 0.7 10 ^3/uL (0-1.3) Eosinophils # (Auto) 0 10 ^3/uL (0-0.8) Basophils # (Auto) 0.1 10 ^3/uL (0-0.2) Nucleated Red Blood Cells 0.0 % Prothrombin Time 9.5 sec (9.3-11.8) Prothrombin Time INR 0.89 (0.9-1.15) Activated Partial Thromboplast Time 25.4 SEC (24.5-34.5) Sodium Level 138 mmol/L (136-145) Potassium Level 4.1 mmol/L (3.5-5.1) Chloride Level 108 mmol/L (98-107) Carbon Dioxide Level 18 mmol/L (20-31) Anion Gap 12 (5-15) Blood Urea Nitrogen 5 mg/dL (9-23) Creatinine 0.47 mg/dL (0.550-1.02) Glomerular Filtration Rate Calc 136 mL/min (>90) BUN/Creatinine Ratio 10.6 (10.0-20.0) Serum Glucose 72 mg/dL (74-106) Calcium Level 9.3 mg/dL (8.7-10.4) Total Bilirubin 0.4 mg/dL (0.2-1.0) Aspartate Amino Transferase (AST) 14 U/L (<34) Alanine Aminotransferase (ALT) 14 U/L (7-40) Alkaline Phosphatase 228 U/L (46-116) Total Protein 6.1 g/dL (5.7-8.2) Albumin 3.6 g/dL (3.2-4.8) Treponema pallidum Antibody Non-reactive (Negative) Hepatitis C Antibody Negative (Negative) Other Laboratory Tests 02/19/25 11:30 Brief Hx & Hospital Course: Condition at Discharge: Good Final Diagnosis/Problems List Discharge Disposition: Home Discharge Instruct/Medications Diet: Regular Activity: No Restrictions, As Tolerated Follow Up/Referral: 2 weeks or prn Discharge Statement: "Patient was advised to return to the ER or call 911 if any headaches, dizziness, shortness of breath, chest pain, abdominal pain, bleeding, fevers, or worsening of medical condition. Patient was counseled about treatment plan, medications, possible side effects, patientverbalized understanding. All questions were answered to the best of my ability. This discharge took greater then 30 minutes in planning, reviewing documentation, counseling the patient, and discussing with other team members." ASSESSMENT ASSESSMENT Assessment Visit Coding OBGYN Date of Service: Feb 20, 2025 Billing Provider: MELY KERR DO GEOSPATIAL ANALYST Common Visit Codes: 76955-XOO/OBS SAME DATE (HIGH) GEOSPATIAL ANALYST Procedure Codes: 14371-[id number] DEL INCLUDING MELY KERR DO Feb 21, 2025 06:03
== END 2025-02-20 21:18 | disposition home or self-care (01) | DRG 560 ==
LOC: LDRP 02-19 10:50 → OBSVTOIN 02-19 11:00 → LDRP 02-19 11:02
PROVIDERS: ADMIT Obstetrics & Gynecology; ATTEND Obstetrics & Gynecology
PROC: 10E0XZZ Delivery of Products of Conception, External Approach (ICD-10-PCS; principal; 2025-02-19)
PROC: 0KQM0ZZ Repair Perineum Muscle, Open Approach (ICD-10-PCS; 2025-02-19)
PROC: 00HU33Z Insertion of Infusion Device into Spinal Canal, Percutaneous Approach (ICD-10-PCS; 2025-02-19)
PROC: 3E0R3BZ Introduction of Anesthetic Agent into Spinal Canal, Percutaneous Approach (ICD-10-PCS; 2025-02-19)
DX: O77.0 Labor and delivery complicated by meconium in amniotic fluid (principal); Z37.0 Single live birth; O70.1 Second degree perineal laceration during delivery; Z3A.38 38 weeks gestation of pregnancy
CPT/HCPCS: 36415; 59025; 59409; 62282; 80053; 80307; 81001; 81002; 85025; 85610; 85730; 86780; 86803; 86850; 86900; 86901; 94760; 96360; 96361; 96365; 96366; G0378; J2590

== ENCOUNTER 2025-02-17 17:10 | Observation (INO) | payer MEDICAID ==
--- NOTE | 2025-02-17 18:42 | DVH ---
BIOPHYSICAL PROFILE HISTORY: cat 2 tracing TECHNIQUE: Multiple transabdominal real-time grayscale sonographic images through the gravid uterus of the fetus with duplex Doppler color flow and M-mode spectral analysis FINDINGS: BIOPHYSICAL PROFILE: breathing score: 2 movement score: 2 tone score: 2 Quantitative ROSANA score: 2 (ROSANA: 11 Cm.) Total score: 8/8 The cervix 2.52 cm long and appears closed. Single live fetus in cephalic presentation. heart rate 145 beats per minute. Grade 2 placenta without previa or abruption. Single live fetus at 38 weeks 1 day Biophysical profile score 8/8 corresponding to an JEREMÍAS of 03/02/2025. IMPRESSION: 1. Biophysical profile score: 8/8 2. FHR: 145 beats per minute 3. Cervix measures 2.52 cm in length and appears closed HS:Y
--- NOTE | 2025-02-22 07:26 | DVHDS2 ---
Physician Discharge Progress N Final Diagnosis: labor check 38wks Operations or Procedures: Operations or Procedures nst reactive reviwed Condition on Discharge: Good Disposition: Home Discharge Instructions: Diet: Regular Activity: No Restrictions, As Tolerated Medications: na Follow Up Care: Specialist: 1d Discharge Statement: "Patient was advised to return to the ER or call 911 if any headaches, dizziness, shortness of breath, chest pain, abdominal pain, bleeding, fevers, or worsening of medical condition. Patient was counseled about treatment plan, medications, possible side effects, patientverbalized understanding. All questions were answered to the best of my ability. This discharge took greater then 30 minutes in planning, reviewing documen tation, counseling the patient, and discussing with other team members." Visit Coding OBGYN Date of Service: Feb 17, 2025 Billing Provider: MISSY SANCHEZ DO COMMISSIONER OF RELOCATION SERVICES Common Visit Codes: [id number] OBS CARE (HIGH) COMMISSIONER OF RELOCATION SERVICES Procedure Codes: 78057-44- NON-STRESS TEST MISSY SANCHEZ DO Feb 22, 2025 07:26
== END 2025-02-17 19:49 | disposition home or self-care (01) ==
LOC: LDRP 17:10
PROVIDERS: ADMIT Obstetrics & Gynecology; ATTEND Obstetrics & Gynecology
DX: O62.9 Abnormality of forces of labor, unspecified (principal); Z3A.38 38 weeks gestation of pregnancy; Z79.899 Other long term (current) drug therapy; Z98.890 Other specified postprocedural states
CPT/HCPCS: 59025; 76817; 76819; 81002; 94760; G0378